=== PATIENT | female | born 1935 | race Caucasian/White ===

== ENCOUNTER 2022-04-20 09:20 | Outpatient (CLI) | payer MEDICARE, SELFPAY ==
--- NOTE | 2022-04-20 10:03 | XR_ITS ---
WS: [id number] Chest 2 views, 04/20/2022 Clinical Data: Cough, crackles in lungs Comparison: None. Findings: No nodules, masses or effusions are seen. The heart is normal. The pulmonary vascularity is not increased. No pneumonia or pneumothorax is seen. The aortic arch and descending thoracic aorta show tortuosity and calcification. XR/XR chest 2V* [id number] Impression: Atherosclerosis.
== END 2022-04-20 09:21 | disposition home or self-care (01) ==
PROVIDERS: PCP Family Medicine; Visit Provider Family Medicine
DX: Z00.00 Encounter for general adult medical examination without abnormal findings (principal); Z13.220 Encounter for screening for lipoid disorders; R05.9 Cough, unspecified; I70.90 Unspecified atherosclerosis
CPT/HCPCS: 71046; 80053; 80061; 83036; 83880; 84439; 84443; 85025; 86141; 90686

== ENCOUNTER 2022-06-14 13:18 | Outpatient (CLI) | payer MEDICARE, SELFPAY ==
--- NOTE | 2022-06-14 13:00 | USCV_ITS ---
Ana Lilia Whiting Age: 86 Gender: F : 1935 Exam Date: 06/14/2022 13:42 Ordering Phys: Hansel Schulte MD Technologist: Exam Location: [facility] [place] Indication: chest pain BP: 130 / 73 HR: 121 Rhythm: Sinus Technical Quality: Adequate MEASUREMENTS (Male / Female) Normal Values 2D ECHO LV Diastolic Diameter PLAX 2.8 cm 4.2 - 5.9 / 3.9 - 5.3 cm LV Systolic Diameter PLAX 2.2 cm IVS Diastolic Thickness 1.0 cm 0.6 - 1.0 / 0.6 - 0.9 cm IVS Systolic Thickness 1.3 cm LVPW Diastolic Thickness 1.0 cm 0.6 - 1.0 / 0.6 - 0.9 cm LVPW Systolic Thickness 1.5 cm LVOT Diameter 2.1 cm LV Ejection Fraction 2D Teich 39.9 % LV Ejection Fraction MOD 2C 46.5 % LV Ejection Fraction 2C AL 48.1 % LA Diameter 3.6 cm Aorta at Sinotubular Diameter 2.5 cm M-MODE Aortic Annulus Diameter 3.3 cm LA Ao Ratio MM 1.1 MV E Point Septal Separation 0.9 cm DOPPLER AV Peak Velocity 154.7 cm/s LVOT Peak Velocity 131.0 cm/s AV Area Cont Eq vti 3.5 cm squared AV Area Cont Eq pk 2.9 cm squared MV Area PHT 5.0 cm squared Mitral E to A Ratio 0.6 MV E' Velocity 52.5 cm/s Mitral E to MV E' Ratio 12.7 Mitral E to LV E' Lateral Ratio 10.0 Mitral E to LV E' Septal Ratio 17.3 TR Peak Velocity 351.0 cm/s TR Peak Gradient 49.3 mmHg TV Peak E Velocity 117.0 cm/s Right Atrial Pressure 3.0 mmHg Pulmonary Artery Systolic Pressu 52.3 mmHg RV Acceleration Time 0.1 s FINDINGS Left Ventricle Normal in size. LV systolic function is normal with EF of 50- 55%. No regional wall motion abnormalities. Grade 1 diastolic dysfunction Right Ventricle Normal in size and function. Right Atrium Normal in size Left Atrium Normal in size Mitral Valve Normal in size. Mild mitral regurgitation. Aortic Valve Grossly normal. No significant stenosis or regurgitation. Tricuspid Valve Mild tricuspid regurgitation. RVSP is 55-60mmHg. This is consistent with moderate pulmonary hypertension Pulmonic Valve Not well visualized Pericardium Normal Aorta Normal in size IVC Appears to be normal CONCLUSIONS LV systolic function is normal with EF of 50-55% Grade 1 diastolic dysfunction Mild mitral regurgitation Mild tricuspid regurgitation Moderate pulmonary hypertension No comparison studies are available Zenon Robledo MD (Electronically Signed) Final Date: 25 June 2022 18:08 S
== END 2022-06-14 13:19 | disposition home or self-care (01) ==
PROVIDERS: PCP Family Medicine; Visit Provider Family Medicine
DX: E87.70 Fluid overload, unspecified (principal); R05.9 Cough, unspecified; I70.90 Unspecified atherosclerosis
CPT/HCPCS: 93306

== ENCOUNTER 2022-09-05 16:30 | Outpatient (CLI) | payer MEDICARE, SELFPAY | END 2022-09-05 16:31 | disposition home or self-care (01) | LOC: SLEEP 09-06 11:28 | PROVIDERS: PCP Family Medicine; Visit Provider Family Medicine | DX: G47.10 Hypersomnia, unspecified (principal); R06.83 Snoring; R53.83 Other fatigue | CPT/HCPCS: G0399 ==

== ENCOUNTER → 2023-10-28 14:36 | Outpatient (BNVA) | payer MEDICARE, SELFPAY | PROVIDERS: PCP Family Medicine; Visit Provider Family Medicine | DX: Z00.00 Encounter for general adult medical examination without abnormal findings (principal); Z51.81 Encounter for therapeutic drug level monitoring; I10 Essential (primary) hypertension; E03.9 Hypothyroidism, unspecified; E53.8 Deficiency of other specified B group vitamins; E55.9 Vitamin D deficiency, unspecified; Z13.220 Encounter for screening for lipoid disorders; R60.0 Localized edema | CPT/HCPCS: 80053; 80061; 82306; 82607; 84439; 84443; 85025 ==

== ENCOUNTER 2023-11-07 15:22 | Outpatient (CLI) | payer MEDICARE, SELFPAY ==
--- NOTE | 2023-11-07 15:42 | MM_ITS ---
WS: [id number] Bilateral screening 3D tomosynthesis digital mammogram, 11/07/2023 Clinical Data: SCREEN Comparison: None. Findings: The breast parenchymal pattern shows fibroglandular tissue. No spiculated masses or clustered calcifi cations are seen. There are no secondary signs of carcinoma. Mole markers are on the left breast. MM/[place] [id number] Impression: 1. Negative bilateral mammogram unchanged. 2. Recommend annual screening mammograms. BIRADS: 1-Negative FOLLOW UP: 1 Year Follow-up The CAD auto design checker was used.
== END 2023-11-07 15:23 | disposition home or self-care (01) ==
LOC: RAD 15:22
PROVIDERS: PCP Family Medicine; Visit Provider Family Medicine
DX: Z12.31 Encounter for screening mammogram for malignant neoplasm of breast (principal)
CPT/HCPCS: 77063; 77067

== ENCOUNTER → 2024-01-01 07:01 | Outpatient (BNVA) | payer MEDICARE, SELFPAY | PROVIDERS: PCP Family Medicine; Visit Provider Family Medicine | DX: R30.0 Dysuria (principal) | CPT/HCPCS: 81000 ==